=== PATIENT | male | born 1970 | race Caucasian/White ===

== ENCOUNTER 2024-12-29 17:54 | Emergency (ER) | payer BC ==
[2024-12-29] MEDS: Lidocaine 2% Viscous Solution 15 ML UD PO ONE (20:09)
[2024-12-29] MEDS: Amoxicillin/Clavulanate K 875-125 MG Tab PO ONE (20:09)
[2024-12-29] MEDS: Ketorolac 30 MG/ML SDV IM ONE (20:11)
== END 2024-12-29 21:26 | disposition home or self-care (01) ==
LOC: MW.ED 17:54
DX: J02.9 Acute pharyngitis, unspecified (principal); I10 Essential (primary) hypertension; Z75.8 Other problems related to medical facilities and other health care
CPT/HCPCS: 87428; 87651; 96372; 99284; A9270; J1100; J1885